=== PATIENT | female | born 1995 | race Caucasian/White ===

== ENCOUNTER 2017-10-11 11:01 | Emergency (ER) | payer OTHER ==
[~2017-10-11] VITALS: Ht 172.7 cm; Wt 83.5 kg
[2017-10-11 11:10] VITALS: TEMP 36.7; Ht 172.7 cm; Wt 83.5 kg
[2017-10-11] MEDS ORDERED: SERT50TA PO (11:29)
[2017-10-11 13:00] VITALS: BP 121/78; PULSE 55; O2SAT 98
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
== END 2017-10-11 13:00 | disposition home or self-care (01) ==
LOC: C.EDB 11:03 → C.EDD 13:00
DX: S09.8XXA Other specified injuries of head, initial encounter (principal); S50.812A Abrasion of left forearm, initial encounter; M25.512 Pain in left shoulder; V49.40XA Driver injured in collision with unspecified motor vehicles in traffic accident, initial encounter; Z79.899 Other long term (current) drug therapy